=== PATIENT | female | born 1970 | race Caucasian/White ===

== ENCOUNTER 2018-04-10 07:23 | Inpatient (IN) | payer MEDICARE ==
[~2018-04-10] VITALS: Ht 157.5 cm; Wt 95.5 kg
[2018-04-10] MEDS ORDERED: ESTRACE2 MG (07:34)
[2018-04-10] MEDS ORDERED: FENOGLIDE40 MG PO (07:34)
[2018-04-10 08:15] LABS: BASOPHILS 0.1 % (0-2); EOSINOPHILS 0.9 % (0-7); HEMATOCRIT 40.5 % (36.0-48.0); HEMOGLOBIN 13.7 g/dL (12-16); IMMATURE GRANULOCYTES 0.4 % (0-5); LYMPHOCYTES 20.7 % (15-50); MCH 30.2 pg (26.0-34.0); MCHC 33.8 g/dL (31.0-37.0); MCV 89.2 fL (80.0-100.0); MEAN PLATELET VOLUME 9.9 fL (7.4-10.4); MONOCYTES 6.9 % (2-11); PLATELET COUNT 442 10x3/uL (130-400); RBC 4.54 10x6/uL (4.00-5.40); RDW 12.3 % (11.5-14.5); WBC 14.8 10x3/uL (4.8-10.8)
[2018-04-10 08:21] LABS: ALBUMIN 3.5 g/dL (3.4-5.0); ANION GAP 17.1 mmol/L (8-16); BILIRUBIN - TOTAL 0.51 mg/dL (0.2-1.3); CALCIUM 9.3 mg/dL (8.5-10.1); CARBON DIOXIDE 24.6 mmol/L (21.0-32.0); CREATININE - SERUM 1.1 mg/dL (0.6-1.3); POTASSIUM - SERUM 3.7 mmol/L (3.5-5.1); PROTEIN - SERUM 8.7 g/dL (6.4-8.2)
[2018-04-10 08:25] LABS: APPEARANCE HAZY (CLEAR); BILIRUBIN NEGATIVE (NEGATIVE); COLOR YELLOW (YELLOW); GLUCOSE NEGATIVE (NEGATIVE); KETONE NEGATIVE (NEGATIVE); NITRITE NEGATIVE (NEGATIVE); PROTEIN TRACE mg/dL (NEGATIVE); UROBILINOGEN NORMAL (NORMAL)
[2018-04-10 08:26] LABS: BACTERIA MODERATE /hpf (NONE SEEN); EPITHELIAL CELLS 0-5 /hpf (0-5); MUCUS <1+ /lpf (NONE SEEN); RED CELLS - URINE OCC /hpf (0-5)
--- NOTE | 2018-04-10 10:21 | NUR ---
RECEIVED REPORT FROM RN IN ER, ASSUME CARE OF PT
--- NOTE | 2018-04-10 12:05 | NUR ---
PT C/O PAIN IN ABD BACK AREA RATING AT 10, PT HAD MORPHINE AT 1000. HAD PILAR PAGED IN REGARDS TO PT DIET AND BREAKTHROUGH PAIN MEDICATION
--- NOTE | 2018-04-10 12:36 | NUR ---
GIVEN VERBAL ORDER FOR 1 TIME MORHINE 2MG FOR PAIN, ADMINISTERED PA IV IN PT LEFT FOREARM, NO OTHER NEEDS VOICED, CONTINUE WITH PLAN OF CARE
--- NOTE | 2018-04-10 14:14 | NUR ---
STARTED PT MEDICAL REGISTRAR, DR TIM AT BEDSIDE EXPLAINING TOMORROWS PROCEDURE TO PT, NO NEEDS VOICED, ALL QUESTIONS ANSWERED, CONTINUE WITH PLAN OF CARE
[2018-04-10 16:53] VITALS: BP 101/64
[2018-04-10 18:21] VITALS: BP 113/72; Ht 157.5 cm; Wt 95.5 kg
--- NOTE | 2018-04-10 18:30 | NUR ---
PATIENT IN BED WITH NO COMPLAINTS. SITTING UP IN BED EATING DINNER WITH FAMILY AT BEDSIDE. CALL LIGHT WITHIN REACH.
[2018-04-10 20:00] VITALS: BP 116/77
[2018-04-11] VITALS: BP 112/66
[2018-04-11 04:00] VITALS: BP 115/76
--- NOTE | 2018-04-11 09:00 | NUR ---
PT RESTING IN BED. NO SIGNS OF DISTRESS. IV TO RIGHT AC PATENT NO REDNESS OR TENDERNESS. COMPLAINS OF ABDOMINAL PAIN. MEDICATION GIVEN. ON 2L NC PRN. AWAITING TO GO TO SURGERY. DENIES ANY OTHER NEED AT THIS TIME. CALL LIGHT IN REACH. BED LOW POSITON. NO FAMILY AT BEDSIDE AT THIS TIME.
[2018-04-11 09:33] VITALS: BP 113/75
--- NOTE | 2018-04-11 10:35 | NUR ---
IN SURGERY AT THIS TIME. AWAITING ON RETURN BACK.
--- NOTE | 2018-04-11 11:05 | NUR ---
PATIENT CONTINUED TO FALL ASLEEP IN PACU. STATES SHE DOES NOT WEAR A CPAP MACHINE BUT DOES HAVE SLEEP APNEA. VITALS SIGNS STABLE. O2 SAT 98% 3L. REPORTS NO PAIN. DISCHARGE TO FLOOR PER ANESTHESIA.
[2018-04-11 11:20] VITALS: BP 126/60
[2018-04-11] MEDS ORDERED: NORCO-10 PO (14:49)
[2018-04-11 18:33] VITALS: BP 104/69
--- NOTE | 2018-04-11 19:15 | NUR ---
RECEIVED CARE FROM DAY NURSE. RESTING IN HIGH FOWLERS POSITION WITH EYES CLOSED. RESP EVEN AND UNALBORED. CALL LIGHT AT SIDE. 02 87% ON ROOM AIR. PLACED 02 BACK ON PT AND SATS MATILDA TO 96%. WILL CONTINUE TO MONITOR.
[2018-04-11 20:00] VITALS: BP 125/87
[2018-04-12] VITALS: BP 131/75
--- NOTE | 2018-04-12 02:10 | NUR ---
ASSESSED, PT IS ASLEEP WITH EASY RESPIRATIONS AND NO DISTRESS NOTED.
[2018-04-12 04:00] VITALS: BP 113/66
--- NOTE | 2018-04-12 08:00 | NUR ---
PATIENT IN BED, SKIN W/D TO TOUCH, COLOR PINK, RESP. REGULAR AND EVEN AT 20. NORMAL SALINE INFUSING AT 30 VIA RIGHT AC VIA PUMP. DENIES C/O PAIN WHEN ASKED. C/L WITHIN REACH AND SR'S UP X'S 2.
[2018-04-12 08:59] VITALS: BP 111/74
[2018-04-12 11:02] LABS: BASOPHILS 0.1 % (0-2); EOSINOPHILS 3.1 % (0-7); HEMATOCRIT 32.7 % (36.0-48.0); HEMOGLOBIN 10.8 g/dL (12-16); IMMATURE GRANULOCYTES 0.5 % (0-5); LYMPHOCYTES 15.5 % (15-50); MCH 29.5 pg (26.0-34.0); MCV 89.3 fL (80.0-100.0); MEAN PLATELET VOLUME 9.3 fL (7.4-10.4); MONOCYTES 7.5 % (2-11); NEUTROPHILS 73.3 % (40-80); PLATELET COUNT 364 10x3/uL (130-400); RBC 3.66 10x6/uL (4.00-5.40); RDW 11.8 % (11.5-14.5); WBC 10.3 10x3/uL (4.8-10.8)
[2018-04-12 11:18] LABS: ALBUMIN 2.4 g/dL (3.4-5.0); ANION GAP 15.6 mmol/L (8-16); BILIRUBIN - TOTAL 0.58 mg/dL (0.2-1.3); CALCIUM 7.8 mg/dL (8.5-10.1); CARBON DIOXIDE 24.3 mmol/L (21.0-32.0); CREATININE - SERUM 0.9 mg/dL (0.6-1.3); POTASSIUM - SERUM 3.9 mmol/L (3.5-5.1); PROTEIN - SERUM 6.4 g/dL (6.4-8.2)
--- NOTE | 2018-04-12 12:58 | NUR ---
PATIENT AMBULATED TO BATHROOM, SKIN W/D TO TOUCH, COLOR PINK, RESP. REGULAR AND EVEN AT 18. INCISIONS INTACT WITH BANDAIDS X'S 4. PATIENT EATING LUNCH. C/L WITHIN REACH AND SR'S UP X'S 2.
[2018-04-12 13:20] VITALS: BP 110/57
[2018-04-12 17:21] VITALS: BP 109/55
--- NOTE | 2018-04-12 17:31 | NUR ---
PATIENT ASS'T TO BATHROOM, SKIN W/D TO TOUCH, COLOR PINK, RESP. REGULAR AND EVEN AT 18. NO MORE FEVER NOTED. INCISIONS INTACT X'S 4 WITH BANAIDS. DENIED ANY C/O PAIN OR DISCOMFORT WHEN ASKED. C/L WITHIN REACH AND SR'S UP X'S 2.
--- NOTE | 2018-04-12 18:43 | NUR ---
ALERT AND ORIENTED IVF INFUSING TO RT. F/A N/S AT 30CC/HR. HYDROCODONE TAKEN FOR PAIN AND EFFECTIVE AT TIMES. ENCOURAGED TO USE CALL LIGHT FOR ASSIST.
--- NOTE | 2018-04-12 19:00 | NUR ---
REPORT RECEIVED AND CARE OF PT ASSUMED. PT LYING IN SUPINE POSITION WATCHING TV. IV IN RIGHT AC PATENT WITH NS INFUSING AT 30 ML / HR. O2 IN USE VIA NC AT 3L. WILL MONITOR FOR NEEDS.
[2018-04-12 19:56] VITALS: BP 107/50
--- NOTE | 2018-04-12 20:15 | NUR ---
HS MEDICATIONS GIVEN TO INCLUDE NORCO PER PRN ORDER, PER REQUEST FOR PAIN. WILL MONITOR FOR EFFECTIVENESS. CALL LIGHT WITHIN REACH.
--- NOTE | 2018-04-12 22:40 | NUR ---
DILAUDID 0.5MG IVP GIVEN PER PT REQUEST FOR PAIN.
[2018-04-13] VITALS: BP 102/57
[2018-04-13 04:00] VITALS: BP 109/64
[2018-04-13 08:32] VITALS: BP 109/63
--- NOTE | 2018-04-13 09:06 | NUR ---
ALERT AND ORIENTED, UP AD VICENTE BANDAIDS INTACT TO ABDOMEN WITH SLIGHT TENDERNESS ON PALPATION. ABDOMEN DISTENDED WITH HYPOACTIVE BS. LUNGS CTA, DENIES ANY FLATULANCE. ENCOURAGED TO AMBULATE. SCD'S INTACT AT THIS TIME. ENCOURAGED TO USE CALL LIGHT FOR ASSIST.
--- NOTE | 2018-04-13 15:15 | MORECARE ---
CASE MANAGEMENT DISCHARGE SUMMARY PATIENT: RA YOUNG UNIT: [id number] ADM DATE: 04/10/18 AGE: 47 : 70 SEX: F ROOM/BED: D.2229 AUTHOR: SHYANN MONAHAN PHYSICIAN: REFERRING PHYSICIAN: CYDNEY TIM MD DATE OF SERVICE: 04/13/18 Discharge Plan Patient Name: RA YOUNG [facility] [facility] 1970 Planned Disposition: Home Anticipated Discharge Date: 04/13/18 Discharge Date: Expected LOS: 3 Initial Reviewer: [email or web address] Initial Review Date: 04/10/2018 Generated: 04/13/18 4:15 pm DCPIA - Discharge Planning Initial Assessment Updated by [id number]: Alley Schwarz on 04/13/18 3:12 pm * Is the patient Alert and Oriented? Yes * How many steps to enter\exit or inside your home? none * PCP Dr. Norris * Pharmacy [facility] on [address] * Preadmission Environment Home with Family * ADLs Independent * Equipment None * List name and contact numbers for known caregivers / representatives who currently or will assist patient after discharge: Kennedy Young - spouse - [phone] * Verbal permission to speak to the caregivers and representatives has been obtained from the patient. Yes * Community resources currently utilized None * Additional services required to return to the preadmission environment? No * Can the patient safely return to the preadmission environment? Yes * Has this patient been hospitalized within the prior 30 days at any hospital? No Patient Name: RA YOUNG Page [id number] at 1515 All edits/amendments must be made on the electronic document DICTATION DATE: 04/13/18 1514 BUSINESS SUPPORT LIAISON: AD 04/13/18 151 RPT#: [id number] DC DATE: STATUS: ADM IN [facility] [address] [place] [address] END OF REPORT
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
[2018-04-13 16:58] VITALS: BP 110/31
--- NOTE | 2018-04-13 17:15 | NUR ---
PULSE OX 92% ON ROOM AIR LYING IN SEMI- BURR POSITION. IV DISCONTINUED AND TOLERATING PAIN WITH PAIN MED. PATIENT STABLE AND DISCHARGED UNDER THE CARE OF FAMILY. STABLE AT TIME OF DISCHARGE VIA W/C POV. VERBALIZED UNDERSTANDING OF DISCHARGE INSTRUCTIONS.
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
--- NOTE | 2018-05-08 09:41 | OP ---
PATIENT NAME: RA CURTIS MEDICAL RECORD: [id number] :[birth year] LOCATION:D.MS [id number] ADMISSION DATE:04/10/18 SURGEON: LUÍS TIM MD DATE OF OPERATION: 04/11/2018 PREOPERATIVE DIAGNOSES: 1. Acute cholecystitis. 2. Hypercholesterolemia. 3. Solitary right kidney. POSTOPERATIVE DIAGNOSES: 1. Acute cholecystitis. 2. Hypercholesterolemia. 3. Solitary right kidney. PROCEDURE: Laparoscopic cholecystectomy. SURGEON: Luís Tim MD RN RENAL: Nataliya Tipton APRN REPORT OF PROCEDURE: The patient's abdomen was prepped and draped in sterile fashion. A cutdown was made on the superior aspect of the umbilicus, 0 Vicryls were placed in the fascia bilaterally and the fascia was incised with a 15-blade. I then bluntly entered the peritoneal cavity and placed a 12-mm Isma port. Under direct visualization, a 5-mm trocar was placed in the epigastrium and two more 5-mm trocars were placed in the right subcostal region. The gallbladder had a lot of adhesions present to it. These were taken down with blunt dissection. The gallbladder was noted be markedly inflamed and distended. A needle was used to access the fundus of the gallbladder and we removed some bilious fluid. At this point, the gallbladder was more easily manipulated. We were able to dissect out the cystic artery and cystic duct. The cystic artery had 2 branches, all 3 of these structures were clipped proximally and distally and ligated in standard fashion. The gallbladder was taken off the liver bed using electrocautery and placed into the right upper quadrant. Any bleeding from the liver bed was then treated with electrocautery. We irrigated out the right upper quadrant and assured there was no sign of any bleeding or bile leakage. At this point, the gallbladder was placed into an Endo Catch bag. The ports and insufflation were then removed and the gallbladder was taken out through the umbilicus. The umbilical fascia was closed with interrupted 0 Vicryls times 4. The wounds were then irrigated out with normal saline and infused with 10 mL of 0.25% Marcaine with epinephrine. The skin incisions were all closed with subcutaneous 5-0 Monocryl and dressed appropriately. COMPLICATIONS: None. CONDITION: Stable. ANESTHESIA: General endotracheal and local. BLOOD LOSS: 30 mL. TRANSINT:[id number] Voice Confirmation ID: [id number] DOCUMENT ID: [id number] OPERATIVE REPORT [id number] RA CURTIS CHRISTIAN MD at 0941 CC: [id number] DICTATION DATE: 04/11/18 1029 TRANSITION MGR: 04/11/18 1213 DIS IN 04/13/18 [facility] [address] [place] [id number]
== END 2018-04-13 17:18 | disposition home or self-care (01) | DRG 418 ==
LOC: D.ER 07:23 → D.MS 10:01
PROVIDERS: Emergency Medicine; Surgery; ADMIT Surgery
PROC: 0FT44ZZ Resection of Gallbladder, Percutaneous Endoscopic Approach (ICD-10-PCS; principal; 2018-04-11 09:15)
DX: K80.00 Calculus of gallbladder with acute cholecystitis without obstruction (principal); Q60.0 Renal agenesis, unilateral